=== PATIENT | female | born 1980 | race Caucasian/White ===

== ENCOUNTER 2017-06-28 10:01 | Inpatient (IN) | payer OTHER ==
[~2017-06-28] VITALS: Ht 162.6 cm; Wt 86.5 kg
[2017-06-28 10:21] VITALS: Ht 162.6 cm; Wt 86.5 kg
[2017-06-28] MEDS ORDERED: PRENAT PO (10:21)
[2017-06-28] MEDS ORDERED: FER325 PO (10:21)
[2017-06-28 10:22] VITALS: BP 123/68; PULSE 93; RESP 18
--- NOTE | 2017-06-28 11:07 | RADRPT ---
PROCEDURE: OB ultrasound for biophysical profile CLINICAL INDICATION: Post dates TECHNIQUE: Multiple sonographic images of the pelvis were obtained. Transabdominal views of the g ravid uterus are available for review. The images were reviewed on a PACS workstation. COMPARISON: None FINDINGS: breathing movement = 2/2 tone = 2/2 motion = 2/2 YORDY = 2/2 YORDY = 11.8 cm Single live intrauterine with cardiac activity of 154 bpm. position is cephal ic. The placenta is anterior. IMPRESSION: 1. Single live intrauterine gestation. 2. Biophysical profile = 8/8. 3. YORDY = 11.8 cm. RPTAT: HH .Becky Carney MD, MD Date Time Electronically viewed and signed by .Becky Carney MD, on 06/28/2017 11:07 .G/
--- NOTE | 2017-06-28 11:15 | RADRPT ---
PROCEDURE: Obstetrical ultrasound. CLINICAL INDICATION: , evaluation. Pelvic pain. Post dates TECHNIQUE: Transabdominal sonographic images of the uterus obtained after first trimester , greater than 14 weeks gestation. Single intrauterine gestation present. COMPARISON: 06/24/2017 FINDINGS: Single intrauterine gestation. There is a cephalic presentation. Measurements were made in order to determine age. The results are as follows: BPD = 39 weeks 1 day(s) HC = 40 weeks 3 day(s) AC = 40 weeks 4 day(s) FL = 39 weeks 5 day(s) Heart rate = 161 beats per minute The placenta is anterior. There is no evidence for an abruption or placenta previa. Ovaries are not visualized. IMPRESSION: Single intrauterine gestation of approximately 40 weeks 0 days by ultrasound criteria. [place]lock estimated weight = 4016 g; 74 percentile for gestational age of 40 weeks 4 days. RPTAT: AADD .Surendra Parkinson MD, MD Date Time Electronically viewed and signed by .Surendra Parkinson MD, on 06/28/2017 11:15 .B/
--- NOTE | 2017-06-28 11:17 | TRIAGE ---
OB Triage Datetime Report Generated by CPN: 06/28/2017 11:17 Datetime: 06/28/2017 10:17 Assessment Type: Triage Maternal Assessment Level of Consciousness: Fully Conscious DTR's/Clonus: DTRs 2+; No Clonus Headache: Denies Blurred Vision: No Respiratory Effort: Unlabored; Regular Rhythm; Equal Expansion Breath Sounds, Left: Clear and Equal Breath Sounds, Right: Clear and Equal Nausea/Vomiting: Denies RUQ Epigastric Pain: Denies Lower Extremities Edema: Bilateral Lower Extremities Degree: 1+ Upper Extremities Edema: None Degree: None Facial Edema: None Fall Risk Assessment History of Falling: (0) No Secondary Diagnosis: (0) No Ambulatory Aid: (0) Bedrest/Nurse Assist IV Therapy: (0) No Gait: (0) Normal/Bedrest/Immobile Mental Status: (0) Oriented to Own Ability Fall Score: 0 Fall Risk Score Definition: No Risk: No action required Datetime: 06/28/2017 10:14 Time of Arrival: 06/28/2017 09:52 EGA: 40.4 Arrived By: Ambulatory Arrived From: Office Chief Complaint: PT SENT IN FOR NST/BPP FOR POST DATES AND A1DM Movement: Present Contractions: Denies/Absent Rupture of Membranes: Denies Vaginal Bleeding: None Vaginal Discharge: Denies Recent Sexual Intercouse: Denies Abdominal Trauma: Not Applicable Patient Complaints: None Time Provider Notified: 06/28/2017 11:00 Provider Notified: DELSHAD Initial Plan: NST/BPP/EFW Datetime: 06/28/2017 10:13 Labor Evaluation Monitor Mode: External Heart Rate Monitor Mode: External US
[2017-06-28] MEDS ORDERED: LACTATED RINGER'S 1,000 ML IV PRN (12:07)
[2017-06-28] MEDS: LACTATED RINGER'S 1,000 ML IV SCH ×4 (12:28→20:07)
[2017-06-28] MEDS: MISOPROSTOL 25 MCG CAPSULE PO SCH ×3 (12:29→21:00)
[2017-06-28] MEDS ORDERED: METHYLERGONOVINE 0.2 MG INJ IM PRN (12:30)
[2017-06-28] MEDS ORDERED: CARBOPROST 250 MCG INJ IM PRN (12:30)
[2017-06-28] MEDS ORDERED: OXYTOCIN 30 UNITS/LR 500 ML IV PRN (12:30)
[2017-06-28] MEDS ORDERED: AMPICILLIN 2 GM/NS (PMX) 100 ML IV ONE (12:30)
[2017-06-28] MEDS ORDERED: LIDOCAINE 1% (MPF) 30 ML INJ INJ PRN (12:30)
[2017-06-28] MEDS ORDERED: MISOPROSTOL 200 MCG TAB PR PRN (12:30)
[2017-06-28 13:46] LABS: BASOPHILS % 0.4 % (0.0-2.0); EOSINOPHILS # 0.1 10^3/ul (0.0-0.5); EOSINOPHILS % 1.6 % (0.0-7.0); HEMATOCRIT 33.5 % (37.0-47.0); HEMOGLOBIN 11.6 g/dl (12.0-16.0); LYMPHOCYTES # 0.9 10^3/ul (0.8-2.9); LYMPHOCYTES % 18.2 % (15.0-51.0); MEAN CORPUSCULAR HEMOGLOBIN 30.9 pg (29.0-33.0); MEAN CORPUSCULAR HGB CONC 34.6 g/dl (32.0-37.0); MEAN CORPUSCULAR VOLUME 89.1 fl (82.0-101.0); MEAN PLATELET VOLUME 9.3 fl (7.4-10.4); MONOCYTE # 0.4 10^3/ul (0.3-0.9); MONOCYTES % 8.4 % (0.0-11.0); NEUTROPHILS % 70.8 % (39.0-77.0); PLATELET COUNT 216 10^3/UL (140-415); RED BLOOD COUNT 3.76 10^6/ul (4.20-5.40); RED CELL DISTRIBUTION WIDTH 13.1 % (11.5-14.5); WHITE BLOOD COUNT 5.1 10^3/ul (4.8-10.8)
[2017-06-28 14:04] LABS: INR 0.88; PARTIAL THROMBOPLASTIN TIME 28.7 Sec (25.0-35.0); PROTIME 11.9 Sec (12.2-14.2); PT RATIO 0.9
[2017-06-28] MEDS ORDERED: FENTAnyl 2MCG/ML-ROPIV 0.2% 100 ML ONE (15:53)
[2017-06-28] MEDS: DEXTROSE 5%-LR 1,000 ML IV SCH ×2 (16:20→20:07)
[2017-06-28] MEDS ORDERED: NALOXONE (0.4 MG/ML) INJ IV PRN (16:30)
[2017-06-28] MEDS ORDERED: ONDANSETRON 4 MG INJ IV PRN (16:30)
[2017-06-28] MEDS ORDERED: DIPHENHYDRAMINE 50 MG INJ IV PRN (16:30)
[2017-06-28] MEDS ORDERED: EPHEDrine SULFATE 50 MG/5 ML SYG IV PRN (16:30)
[2017-06-28] MEDS: AMPICILLIN 1 GM/NS (PMX) 50 ML IV SCH ×2 (16:53→20:49)
--- NOTE | 2017-06-28 19:36 | HP ---
Date/Time of Note Date/Time of Note DATE: 06/28/17 TIME: 19:35 OB - History Hx of Present Chief Complaint: post date Estimated Due Date: Jun 24, 2017 : 3 Para: 2 Spontaneous : 0 Therapeutic : 0 Care: Good Care Ultrasounds: Normal mid trimester US Obstetrical Complications: Gestational Diabetes Medical Complications: None Past Family/Social History * Past Medical, Surgical, Family and Obstetric Histories reviewed from chart. GBS Status: Positive OB Admission Exam Vital Signs Vital Signs Vital Signs Date Time Temp Pulse Resp B/P Pulse Ox O2 Delivery O2 Flow Rate FiO2 06/28/17 10:22 98.6 93 18 123/68 97 Room Air Physical Exam HEENT: WNL Heart: Rhythm Normal Lungs: Clear, Equal Abdomen: WNL Extremities: Normal Reflexes: Normal Cervical Dilatation: None Effacement: 25% Station: -1 Membranes: Intact Heart Rate: 130's Accelerations: Accelerations Present Decelerations: No Decelerations Varibility: Moderate Last 72 hourBlood Glucose Bedside Glucose - 72 Hours Test 06/28/17 17:01 Bedside Glucose 96mg/dL (70-220) Last 72 hours Lab Results CBC & BMP 06/28/17 11:30 OB Assessment/Plan Reason for admission: induction of labor Plan: Induction Induction Method: per Misoprostol Protocol CHAS VANG MD Jun 28, 2017 19:36
[2017-06-28] MEDS: FENTAnyl 2MCG/ML-ROPIV 0.2% 100 ML BAG EPI SCH (20:45)
[2017-06-29] MEDS: AMPICILLIN 1 GM/NS (PMX) 50 ML IV SCH ×6 (00:23→21:18)
[2017-06-29] MEDS: FENTAnyl 2MCG/ML-ROPIV 0.2% 100 ML BAG EPI SCH ×3 (02:00→21:40)
[2017-06-29] MEDS: MISOPROSTOL 25 MCG CAPSULE PO SCH ×2 (02:01→06:29)
[2017-06-29] MEDS: LACTATED RINGER'S 1,000 ML IV SCH ×5 (02:05→21:47)
[2017-06-29] MEDS: DEXTROSE 5%-LR 1,000 ML IV SCH ×3 (04:42→20:07)
[2017-06-29] MEDS ORDERED: OXYTOCIN 30 UNITS/LR 500 ML IV SCH (06:30)
[2017-06-30] MEDS: AMPICILLIN 1 GM/NS (PMX) 50 ML IV SCH ×3 (00:24→08:27)
[2017-06-30] MEDS: FENTAnyl 2MCG/ML-ROPIV 0.2% 100 ML BAG EPI SCH ×2 (02:32→08:28)
[2017-06-30] MEDS: LACTATED RINGER'S 1,000 ML IV SCH ×5 (02:32→18:52)
[2017-06-30] MEDS: DEXTROSE 5%-LR 1,000 ML IV SCH (05:23)
--- NOTE | 2017-06-30 09:26 | QN ---
Documentation Comment Patient has progressed to 8 cm dilation and there has been no further progress. Jude is counseled about her options of management. Patient requests deliovedry by primary . Risks, benefits and alternatives were explained to the patient who stated she understood and gave informed consent for the procedure. CHAS VANG MD Jun 30, 2017 09:26
[2017-06-30] MEDS ORDERED: ONDANSETRON 4 MG INJ IV STA (09:29)
[2017-06-30] MEDS ORDERED: CITRIC ACID/NA CITRATE 30 ML CUP ONE (09:30)
[2017-06-30] MEDS ORDERED: CITRIC ACID/NA CITRATE 30 ML CUP PO ONE (09:30)
[2017-06-30] MEDS ORDERED: CEFAZOLIN 2 GM/50 ML (PMX) 50 ML IVPB ONE ×2 (09:30→09:31)
[2017-06-30] MEDS ORDERED: ONDANSETRON 4 MG INJ ONE (09:30)
[2017-06-30] MEDS ORDERED: FENTAnyl 50 MCG/ML VIAL ONE ×3 (10:34→11:19)
[2017-06-30] MEDS ORDERED: morphine SULFATE/PF (10 MG/10 ML) INJ ONE (10:34)
[2017-06-30] MEDS ORDERED: METOCLOPRAMIDE 10 MG INJ ONE (10:34)
[2017-06-30] MEDS ORDERED: OXYTOCIN 10 UNIT INJ ONE ×2 (10:34→10:57)
[2017-06-30] MEDS ORDERED: PHENYLephrine (100 MCG/ML) 5ML SYG ONE (10:34)
[2017-06-30] MEDS ORDERED: NA BICARBONATE 8.4% 50 ML SYG ONE (10:35)
[2017-06-30] MEDS ORDERED: LIDOCAINE 2% (SDV) 5 ML INJ ONE (10:35)
[2017-06-30] MEDS ORDERED: KETOROLAC 30 MG INJ ONE (11:14)
[2017-06-30] MEDS ORDERED: morphine 10 MG INJ ONE (11:26)
[2017-06-30] MEDS ORDERED: TRIMETHOBENZAMIDE 100 MG/ML VIAL IM PRN ×2 (11:30)
[2017-06-30] MEDS ORDERED: OXYCODONE/ACETAMINOPHEN (5/325) TAB PO PRN ×2 (11:30)
[2017-06-30] MEDS ORDERED: ZOLPIDEM 5 MG TAB PO PRN (11:30)
[2017-06-30] MEDS ORDERED: MEPERIDINE 25 MG INJ IV PRN (11:30)
[2017-06-30] MEDS ORDERED: HYDROmorphONE (0.2 MG/ML) 10ML SYG IV PRN ×3 (11:30)
[2017-06-30] MEDS ORDERED: FENTAnyl 50 MCG/ML VIAL IV PRN ×3 (11:30)
[2017-06-30] MEDS ORDERED: NALOXONE (0.4 MG/ML) INJ IV PRN (11:30)
[2017-06-30] MEDS ORDERED: EPHEDrine SULFATE 50 MG/5 ML SYG IV PRN (11:30)
[2017-06-30] MEDS ORDERED: ONDANSETRON 4 MG INJ IV PRN ×2 (11:30)
[2017-06-30] MEDS ORDERED: morphine 4 MG/ML VIAL IV PRN (11:30)
[2017-06-30] MEDS ORDERED: LABETALOL HCL 20MG INJ IV PRN (11:30)
[2017-06-30] MEDS ORDERED: hydrALAzine 20 MG INJ IV PRN (11:30)
[2017-06-30] MEDS ORDERED: MIDAZOLAM 1 MG/ML 2 ML INJ IV PRN (11:30)
[2017-06-30] MEDS ORDERED: ALBUTEROL 0.083% (NEB) 2.5 MG/3 ML AMP HHN PRN (11:30)
[2017-06-30] MEDS ORDERED: NALBUPHINE HCL (10 MG/1 ML) INJ IV PRN (11:30)
[2017-06-30] MEDS ORDERED: DIPHENHYDRAMINE 50 MG INJ IV PRN ×2 (11:30)
[2017-06-30] MEDS ORDERED: morphine 2 MG INJ IV PRN (11:30)
[2017-06-30] MEDS ORDERED: IPRATROPIUM (NEB) 0.5 MG/2.5 ML AMP HHN PRN (11:30)
[2017-06-30] MEDS ORDERED: OXYTOCIN 30 UNITS/LR 500 ML IV SCH (12:02)
--- NOTE | 2017-06-30 12:02 | SIPON ---
Date/Time of Note Date/Time of Note DATE: 06/30/17 TIME: 11:58 Operative Report Preoperative Diagnosis Term , GDM, Arrest of dilation Postoperative Diagnosis Same Operation/Procedure Performed Primary Surgeon: CHAS VANG MD certified pathology assistant: IGOR CHAND MD Anesthesia Type: epidural Estimated Blood Loss: other (700 ml) Transfusion Required: no Specimens placenta Grafts/Implants: none Complications: no CHAS VANG MD Jun 30, 2017 12:02
[2017-06-30] MEDS ORDERED: MISOPROSTOL 200 MCG TAB PR PRN (12:30)
[2017-06-30] MEDS ORDERED: OXYTOCIN 30 UNITS/LR 500 ML IV PRN (12:30)
[2017-06-30] MEDS ORDERED: CARBOPROST 250 MCG INJ IM PRN (12:30)
[2017-06-30] MEDS ORDERED: METHYLERGONOVINE 0.2 MG INJ IM PRN (12:30)
[2017-06-30] MEDS ORDERED: LANOLIN 7 GM TUBE TOP PRN (12:30)
--- NOTE | 2017-06-30 14:49 | OPR ---
DATE OF OPERATION: 06/28/2017 PREOPERATIVE DIAGNOSIS: at term with gestational diabetes and arrest of dilation. POSTOPERATIVE DIAGNOSIS: at term with gestational diabetes and arrest of dilation. OPERATION PERFORMED: Primary low transverse section. SURGEON: Dr. Stanley Galvan. COIN COUNTER AND WRAPPER: . ANESTHESIA: Epidural. ANESTHESIOLOGIST: Dr. Pickett. OPERATIVE PROCEDURE: Patient was taken to the operating room and placed on the operating table. After adequate epidural anesthesia was given the area was prepared and draped in the usual sterile fashion. Epidural anesthesia was tested and was satisfactory. Using scalpel, Pfannenstiel incision was made about 2 fingerbreadths above the symphysis pubis. The incision was carried down to the fascia. The fascia was incised and extended bilaterally with Castorena scissors. Two Tyshawn's were used to separate the fascia from the muscle. The muscle was dissected in the midline down to the peritoneum. The peritoneum was bluntly entered. Using a scalpel, a small transverse incision was made on the lower segment of the uterus. Upon entering the uterine cavity a banister were inserted to extend the incision bilaterally curved up. Baby was delivered from cephalic presentation. After suctioned clear of amniotic fluid. The baby was handed off to the team in attendance. Apgars were 9 and 9. The placenta was delivered without difficulty. The uterus was closed with number 1 Monocryl continuous locked after assuring hemostasis, both ovaries and tubes were inspected and all looked normal. The peritoneum was closed with 2-0 Vicryl continuous. The fascia was closed with number 1 Vicryl continuous in 2 segments. Subcutaneous tissue was reapproximated with 2-0 plain. The skin was closed with sumeet. ESTIMATED BLOOD LOSS: 700 mL. COUNTS: All counts were correct. Dictated By: Stanley Galvan MD /rogelio/loyd /Document#: [id number]
[2017-06-30 15:20] VITALS: BP 129/66; PULSE 84; RESP 18
[2017-06-30 16:00] VITALS: BP 124/58; PULSE 95; RESP 18
[2017-06-30] MEDS: KETOROLAC 30 MG INJ IV PRN (17:30)
[2017-06-30 20:00] VITALS: BP 115/56; PULSE 99; RESP 18
[2017-06-30] MEDS: SENNA/DOCUSATE NA (8.6MG/50MG) TAB PO SCH (21:03)
[2017-07-01] VITALS: BP 127/68; PULSE 95; RESP 18
[2017-07-01] MEDS: KETOROLAC 30 MG INJ IV PRN ×2 (00:09→09:00)
[2017-07-01] MEDS: LACTATED RINGER'S 1,000 ML IV SCH ×3 (02:11→20:02)
[2017-07-01 04:00] VITALS: BP 109/59; PULSE 79; RESP 18
[2017-07-01 08:00] VITALS: BP 109/62; PULSE 84; RESP 18
[2017-07-01] MEDS: SENNA/DOCUSATE NA (8.6MG/50MG) TAB PO SCH ×2 (08:59→20:08)
[2017-07-01 10:24] LABS: WHITE BLOOD COUNT 10.9 10^3/ul (4.8-10.8)
[2017-07-01 10:25] LABS: BASOPHILS % 0.2 % (0.0-2.0); EOSINOPHILS # 0.1 10^3/ul (0.0-0.5); EOSINOPHILS % 0.5 % (0.0-7.0); HEMATOCRIT 24.4 % (37.0-47.0); HEMOGLOBIN 8.2 g/dl (12.0-16.0); LYMPHOCYTES # 0.8 10^3/ul (0.8-2.9); LYMPHOCYTES % 7.2 % (15.0-51.0); MEAN CORPUSCULAR HEMOGLOBIN 29.9 pg (29.0-33.0); MEAN CORPUSCULAR HGB CONC 33.6 g/dl (32.0-37.0); MEAN CORPUSCULAR VOLUME 89.1 fl (82.0-101.0); MEAN PLATELET VOLUME 9.5 fl (7.4-10.4); MONOCYTE # 0.5 10^3/ul (0.3-0.9); MONOCYTES % 4.8 % (0.0-11.0); NEUTROPHIL # 9.5 10^3/ul (1.6-7.5); NEUTROPHILS % 86.8 % (39.0-77.0); PLATELET COUNT 154 10^3/UL (140-415); RED BLOOD COUNT 2.74 10^6/ul (4.20-5.40); RED CELL DISTRIBUTION WIDTH 13.4 % (11.5-14.5)
[2017-07-01] MEDS ORDERED: LACTATED RINGER'S 1,000 ML IV ONE (11:30)
[2017-07-01 12:00] VITALS: BP 110/55; RESP 18
[2017-07-01] MEDS: FERROUS SULFATE (EC) 325 MG TAB PO SCH ×2 (12:32→20:08)
[2017-07-01] MEDS: IBUPROFEN 800 MG TAB PO SCH ×2 (13:19→22:14)
[2017-07-01] MEDS: OXYCODONE/ACETAMINOPHEN (5/325) TAB PO PRN ×2 (14:30→20:08)
[2017-07-01 16:00] VITALS: BP 110/62; PULSE 85; RESP 18
--- NOTE | 2017-07-01 19:28 | QN ---
Documentation Comment No complaint Afebrile VSS Abdomen soft ND POD #1 Stable Ambulate Advance diet. CHAS VANG MD Jul 01, 2017 19:28
[2017-07-01 20:05] VITALS: BP 125/67; PULSE 64; RESP 19
[2017-07-02 04:00] VITALS: BP 108/56; PULSE 72; RESP 18
[2017-07-02] MEDS: IBUPROFEN 800 MG TAB PO SCH ×3 (05:49→22:10)
[2017-07-02] MEDS: OXYCODONE/ACETAMINOPHEN (5/325) TAB PO PRN ×2 (07:23→12:11)
[2017-07-02 08:00] VITALS: BP 117/64; PULSE 72; RESP 17
[2017-07-02] MEDS: SENNA/DOCUSATE NA (8.6MG/50MG) TAB PO SCH ×2 (09:52→22:10)
[2017-07-02] MEDS: FERROUS SULFATE (EC) 325 MG TAB PO SCH ×3 (09:52→22:10)
[2017-07-02 16:00] VITALS: BP 113/70; PULSE 73; RESP 18
--- NOTE | 2017-07-02 17:41 | DS ---
Date/Time of Note Date/Time of Note DATE: 07/02/17 TIME: 17:39 Obstetrical Discharge Record Final Diagnosis Final Diagnosis: Term delivered Section Section: Primary Primary Indication Arrest of dilation Complications Gestational Diabetes Induction: Yes Condition on Discharge Physical Assessment Voiding: Yes Bowel Movement: Yes Breast: Soft, non-tender Fundus: Firm Abdomen and Incision: Incision intact Calf Tenderness: No Patient Condition: Stable CHAS VANG MD Jul 02, 2017 17:40
[2017-07-02 19:30] VITALS: BP 128/75; PULSE 72; RESP 18
[2017-07-03 04:30] VITALS: BP 115/69; PULSE 59; RESP 18
[2017-07-03] MEDS: IBUPROFEN 800 MG TAB PO SCH (05:50)
[2017-07-03 08:00] VITALS: BP 123/76; PULSE 65; RESP 18
[2017-07-03] MEDS: SENNA/DOCUSATE NA (8.6MG/50MG) TAB PO SCH (09:00)
[2017-07-03] MEDS ORDERED: DIPHTH/TET/ACEL PERTUSS (ADULT) 0.5 ML VIAL IM* ONE (09:00)
[2017-07-03] MEDS: FERROUS SULFATE (EC) 325 MG TAB PO SCH ×2 (10:19→13:31)
[2017-07-03] MEDS: OXYCODONE/ACETAMINOPHEN (5/325) TAB PO PRN (10:20)
== END 2017-07-03 14:30 | disposition home or self-care (01) | DRG 766 ==
LOC: L-D 10:01 → OBT 10:01 → L-D 11:10 → OBT 11:21 → L-D 06-30 12:31 → PP1 06-30 15:15
PROVIDERS: ADMIT Obstetrics & Gynecology; ATTEND Obstetrics & Gynecology
PROC: 3E033VJ Introduction of Other Hormone into Peripheral Vein, Percutaneous Approach (ICD-10-PCS; 2017-06-30)
PROC: 10D00Z1 Extraction of Products of Conception, Low, Open Approach (ICD-10-PCS; principal; 2017-06-30 11:00)
DX: O24.429 Gestational diabetes mellitus in childbirth, unspecified control (principal); O48.0 Post-term pregnancy; Z3A.40 40 weeks gestation of pregnancy; Z37.0 Single live birth
CPT/HCPCS: 62319; 76815; 76818; 82947; 82962; 85025; 85610; 85730; 86592; 86850; 86900; 86901; 86920; 90715; 99464; G0463; J0290; J0690; J1885; J2270; J2274; J2370; J2405; J2590; J2765; J3010; J7120; J7121